=== PATIENT | female | born 1995 | race African-American/Black ===

== ENCOUNTER 2019-12-11 11:47 | Emergency (ER) | payer OTHER ==
[2019-12-11 11:53] VITALS: BP 125/78; PULSE 106; TEMP 99; BMI 27.4
[2019-12-11 13:32] LABS: THROAT:GRP A STREP ANTIGEN Negative (Negative)
--- NOTE | 2019-12-11 13:42 | PDOC ---
History of Present Illness - General Chief Complaint: Cold Symptoms Stated Complaint: RUNNY NOSE/FEVER Time Seen by Provider: 12/11/19 12:03 History Source: Patient Exam Limitations: No Limitations - History of Present Illness Initial Comments: 12/11/19 13:30 HISTORY OF PRESENT ILLNESS: 24-year-old woman who denies medical history presents to the emergency department for evaluation of sore throat, rhinorrhea and facial pain for 3 days. Patient states her daughter had similar symptoms and was sent home from school. Mother states the child returned to baseline within 48 hours patient is concerned that her symptoms were present for 3 days she has not improved. No recent travel or sick contacts. PAST MEDICAL HISTORY: Denies past medical history SURGICAL HISTORY: Denies ALLERGIES: No known drug allergies REVIEW OF SYSTEMS General/Constitutional: Denies fever or chills. Denies weakness, weight change. HEENT: See HPI Cardiovascular: Denies chest pain or shortness of breath. Respiratory: Denies cough, wheezing, or hemoptysis. Gastrointestinal: Denies nausea, vomiting, diarrhea or constipation. Denies rectal bleeding. Genitourinary: Denies dysuria, frequency, or change in urination. Musculoskeletal: Denies joint or muscle swelling or pain. Denies neck or back pain. Skin and breasts: Denies rash or easy bruising. Neurologic: Denies headache, vertigo, loss of consciousness, or loss of sensation. Psychiatric: Denies depression or anxiety. Endocrine: Denies increased thirst. Denies abnormal weight change. Hematologic/Lymphatic: Denies anemia, easy bleeding, or history of blood clots. Allergic/Immunologic: Denies hives or skin allergy. Denies latex allergy. PHYSICAL EXAM General Appearance: Well-appearing, appropriately dressed. No apparent distress, no intoxication. HEENT: EOMI, PERRLA, normal ENT inspection, normal voice, TMs normal, pharynx normal. No conjunctival pallor. No photophobia, scleral icterus. Clear rhinorrhea present to bilateral naris. Neck: Supple. Trachea midline. No tenderness, rigidity, carotid bruit, stridor, lymphadenopathy, or thyromegaly. Respiratory/Chest: Lungs CTAB. No shortness of breath, chest tenderness, respir atory distress, accessory muscle use. No crackles, rales, rhonchi, stridor, wheezing, dullness Cardiovascular: RRR. S1, S2. No JVD, murmur, bradycardia, tachycardia. Neurologic: product marketing coordinator II-XII intact. Fully oriented, alert. Appropriate mood/affect. Motor strength 5/5. No appreciable EOM palsy, facial droop or sensory deficit. Past History - Medical History Allergies/Adverse Reactions: Allergies Allergy/AdvReac Type Severity Reaction Status Date / Time No Known Drug Allergies Allergy Verified 12/11/19 11:51 Home Medications: Ambulatory Orders Vitamins (Sjr) - 1 tab PO DAILY 01/11/14 Acetaminophen [Tylenol .Regular Strength -] 650 mg PO Q3H PRN #20 tablet 01/12/14 Ibuprofen [Motrin -] 200 mg PO Q4H PRN #20 tablet 01/12/14 Asthma: No Cancer: No Cardiac Disorders: No Diabetes: No HTN: No Seizures: No Thyroid Disease: No - Reproductive History Is Patient Now?: No - Psycho-Social/Smoking History Smoking History: Never smoked Have you smoked in the past 12 months: No Number of Cigarettes Smoked Daily: 0 - Substance Abuse Hx (Audit-C & DAST Scrn) How often the patient has a drink containing alcohol: Never Score: In Men: 4 or > Positive; In Women: 3 or > Positive: 0 Screen Result (Pos requires Nsg. Audit-10AR): Negative In the last yr the pt used illegal drug/Rx for NonMed reason: No Score: Yes response is considered Positive: 0 Screen Result (Positive result requires Nsg. DAST-10): Negative *Physical Exam - Vital Signs Last Vital Signs Temp Pulse Resp BP Pulse Ox 99.0 F 106 H 18 125/78 98 12/11/19 11:51 12/11/19 11:51 12/11/19 11:51 12/11/19 11:51 12/11/19 11:51 Medical Decision Making - Medical Decision Making 12/11/19 13:33 A/P: 24-year-old woman with upper respiratory symptoms for 3 days Rapid strep Covid Reassess 12/11/19 13:42 Group A strep is negative. Covid testing pending Covid counseling provided Discharge home to social distancing I discussed the physical exam findings, ancillary test results and final diagnoses with the patient. I answered all of the patient's questions. The patient was satisfied with the care received and felt comfortable with the discharge plan and treatment plan. The patient will call their primary care physician within 24 hours to arrange follow-up and will return to the Emergency Department with any new, persistent or worsening symptoms. Portions of this note have been documented using voice recognition software. As a result, errors may occur in the calender machine operator process. Effort has been made to correct all grammatical and calender machine operator error, but some may have been missed which may produce sporadic inaccurate calender machine operator or nonsensical phrases. Discharge - Discharge Information Problems reviewed: Yes Clinical Impression/Diagnosis: Counseled about COVID-19 virus infection URI (upper respiratory infection) Qualifiers: URI type: unspecified viral URI Qualified Code(s): J06.9 - Acute upper respiratory infection, unspecified Condition: Stable Disposition: HOME - Admission No - Follow up/Referral - Patient Discharge Instructions Patient Printed Discharge Instructions: [facility] COVID-19 Isolation Protocol, [facility]-Coronavirus Instructions Additional Instructions: Rest, drink lots of fluids: Teas, water, soups, Pedialyte Saltwater gargles Steamy showers/seem to face break up mucus Avoid contact with others until fevers and cough resolved Lots of handwashing and good hygiene Continue [id number] medications for symptomatic relief Tylenol or Motrin for fever and pain Followup with private physician in one to 2 days as needed Return to emergency department for worsened symptoms, fevers, dehydration - Post Discharge Activity Work/Back to School Note: Back to Work
== END 2019-12-11 14:06 | disposition home or self-care (01) ==
LOC: JER 11:47
DX: J06.9 Acute upper respiratory infection, unspecified (principal)
CPT/HCPCS: 87070; 87880; 99283-25; C9803; U0003